=== PATIENT | female | born 1960 | race Caucasian/White ===

== ENCOUNTER 2016-12-13 15:03 | Emergency (ER) | payer OTHER ==
[2016-12-13 15:23] VITALS: TEMP 98.2; BMI 27.0
[2016-12-13] MEDS ORDERED: ASPIRIN 81 MG CHEWABLE TABLETS PO ONE (17:09)
[2016-12-13 19:01] LABS: BASOPHIL 1.4 % (0-2.0); EOSINOPHIL 1.8 % (0-4.5); MCH 32.3 pg (25.7-33.7); MCHC 33.8 g/dl (32.0-36.0); MEAN CELL VOLUME 95.6 fl (80-96); MEAN PLT VOLUME 9.3 fl (7.5-11.1); NEUTROPHILS 59.3 % (42.8-82.8); PLATELET COUNT 307 K/MM3 (134-434); RDW 13.1 % (11.6-15.6)
--- NOTE | 2016-12-13 19:12 | PDOC ---
History of Present Illness - General History Source: Patient Exam Limitations: Language Barrier (telugu speaking) <Hailey Sarmiento - Last Filed: 12/13/16 22:10> <Lola Dockery - Last Filed: 12/14/16 00:32> - General Chief Complaint: Chest Pain Stated Complaint: CHEST PAIN (PCP SENT) Time Seen by Provider: 12/13/16 16:25 - History of Present Illness Initial Comments: 12/13/16 19:13 The patient is a 56 year old, Honduran speaking female with past medical history of hypertension, and left ovarian cyst who presents to the ED with complaints of chest pain that began four days ago. She locates the pain to her mid sternum and describes it as burning with radiation to her left chest. It is associated with numbness and tingling down her left arm as well as mild shortness of breath , nausea, vomiting, and dizziness. She denies any recent illness, fever, chills , vomiting, diarrhea, or urinary symptoms. Translation was provided by the [employer] phone #[phone] Surgeries: Peptic ulcer surgery Allergies: N/A [facility] Past History <Hailey Sarmiento - Last Filed: 12/13/16 22:10> - Past Medical History Other medical history: ovarian cyst - Psycho/Social/Smoking Cessation Hx Suicidal Ideation: No Smoking History: Former smoker Have you smoked in the past 12 months: No If you are a former smoker, when did you quit?: 2-3 years ago Information on smoking cessation initiated: No <Lola Dockery - Last Filed: 12/14/16 00:32> - Past Medical History Allergies/Adverse Reactions: Allergies Allergy/AdvReac Type Severity Reaction Status Date / Time No Known Allergies Allergy Verified 12/13/16 15:12 Home Medications: Ambulatory Orders Unobtainable [Unobtainable] 12/13/16 Review of Systems - Review of Systems Able to Perform ROS?: Yes All Other Systems: Reviewed and Negative <lorenzoHailey dumas - Last Filed: 12/13/16 22:10> <Lola Dockery - Last Filed: 12/14/16 00:32> - Review of Systems Comments:: 12/13/16 19:14 CONSTITUTIONAL: Absent: fever, chills, diaphoresis, generalized weakness, malaise, loss of appetite HEENT: Absent: rhinorrhea, nasal congestion, throat pain, throat swelling, difficulty swallowing, mouth swelling, ear pain, eye pain, visual Changes CARDIOVASCULAR: Present: chest pain Absent: syncope, palpitations, irregular heart rate, lightheadedness, peripheral edema RESPIRATORY: Present: shortness of breath Absent: cough,dyspnea with exertion, orthopnea, wheezing, stridor, hemoptysis GASTROINTESTINAL: Present: nausea Absent: abdominal pain, abdominal distension,vomiting, diarrhea, constipation, melena, hematochezia GENITOURINARY: Absent: dysuria, frequency, urgency, hesitancy, hematuria, flank pain, genital pain MUSCULOSKELETAL: Absent: myalgia, arthralgia, joint swelling SKIN: Absent: rash, itching, pallor HEMATOLOGIC/IMMUNOLOGIC: Absent: easy bleeding, easy bruising, lymphadenopathy, frequent infections ENDOCRINE: Absent: unexplained weight gain, unexplained weight loss, heat intolerance, cold intolerance NEUROLOGIC: Present: dizziness, numbness/ tingling down left arm Absent: headache, focal weakness or paresthesias, unsteady gait, seizure, mental status changes, bladder or bowel incontinence PSYCHIATRIC: Absent: anxiety, depression, suicidal or homicidal ideation, hallucinations. (Hailey Sarmiento) *Physical Exam <TorstenHailey - Last Filed: 12/13/16 22:10> <Lola Dockery - Last Filed: 12/14/16 00:32> - Vital Signs Last Vital Signs Temp Pulse Resp BP Pulse Ox 98.2 F 91 H 18 129/84 91 L 12/13/16 15:12 12/13/16 21:08 12/13/16 21:08 12/13/16 21:08 12/13/16 21:08 - Physical Exam Comments: 12/13/16 19:16 GENERAL: Well developed, well nourished. Awake and alert. No acute distress. HEENT: Normocephalic, atraumatic. PERRLA, EOMI. No conjunctival pallor. Sclera are non- icteric. Moist mucous membranes. Oropharynx is clear. NECK: Supple. Full ROM. No JVD. Carotid pulses 2+ and symmetric, without bruits. No thyromegaly. No lymphadenopathy. CARDIOVASCULAR: Regular rate and rhythm. No murmurs, rubs, or gallops. Distal pulses are 2+ and symmetric. PULMONARY: No evidence of respiratory distress. Lungs clear to auscultation bilaterally. No wheezing, rales or rhonchi. ABDOMINAL: Soft. Non-tender. Non-distended. No rebound or guarding. No organomegaly. Normoactive bowel sounds. MUSCULOSKELETAL Normal range of motion at all joints. No bony deformities or tenderness. No CVA tenderness. EXTREMITIES: No cyanosis. No clubbing. No edema. No calf tenderness. SKIN: Warm and dry. Normal capillary refill. No rashes. No jaundice. NEUROLOGICAL: Alert, awake, appropriate. Cranial nerves 2-12 intact. No deficits to light touch and temperature in face, upper extremities and lower extremities. No motor deficits in the in face, upper extremities and lower extremities. Normoreflexic in the upper and lower extremities. Normal speech. Toes are down-going bilaterally. Gait is normal without ataxia. PSYCHIATRIC: Cooperative. Good eye contact. Appropriate mood and affect. (Hailey Sarmiento) Heart Score/ECG Review <Hailey Sarmiento - Last Filed: 12/13/16 22:10> <Lola Dockery - Last Filed: 12/14/16 00:32> - ECG Intrepretation Comment:: 12/13/16 19:42 ECG obtained at 15:12 Normal sinus at 66 b[facility] ED Treatment Course - LABORATORY CBC & Chemistry Diagram: 12/13/16 18:50 12/13/16 18:50 <Hailey Sarmiento - Last Filed: 12/13/16 22:10> - LABORATORY CBC & Chemistry Diagram: 12/13/16 18:50 12/13/16 18:50 <Lola Dockery - Last Filed: 12/14/16 00:32> - ADDITIONAL ORDERS Additional order review: Laboratory Results 12/13/16 12/13/16 12/13/16 23:34 18:50 18:50 INR 1.12 D-Dimer < 200 Sodium 138 Potassium 4.2 Chloride 102 Carbon Dioxide 30 Anion Gap 6 L BUN 17 Creatinine 0.7 Creat Clearance w eGFR > 60 Random Glucose 97 Calcium 10.0 Magnesium 2.2 Total Bilirubin 0.3 AST 13 L ALT 26 Alkaline Phosphatase 100 Creatine Kinase 85 62 Troponin I < 0.02 < 0.02 B-Natriuretic Peptide 239.41 H Total Protein 7.8 Albumin 4.3 12/13/16 18:50 RBC 4.27 MCV 95.6 MCHC 33.8 RDW 13.1 MPV 9.3 Neutrophils % 59.3 Lymphocytes % 30.1 Monocytes % 7.4 Eosinophils % 1.8 Basophils % 1.4 - RADIOLOGY Radiology Studies Ordered: Category Date Time Status CHEST X-RAY PORTABLE* [RAD] Stat Radiology 12/13/16 17:09 Completed - Medications Given in the ED: ED Medications Discontinued Medications Generic Name Dose Route Start Last Admin Trade Name Nurys PRN Reason Stop Dose Admin Al Hydroxide/Mg Hydroxide 30 ml 12/13/16 20:34 12/13/16 21:05 Mylanta Oral Suspension - PO 12/13/16 20:35 30 ml ONCE ONE Administration Aspirin 162 mg 12/13/16 17:09 12/13/16 17:13 Asa - PO 12/13/16 17:10 Not Given ONCE ONE Famotidine/Sodium Chloride 50 mls @ 100 mls/hr 12/13/16 20:34 12/13/16 21:06 Pepcid 20 Mg Premixed Ivpb - IVPB 12/13/16 21:03 100 mls/hr ONCE ONE Administration Medical Decision Making <Hailey Sarmiento - Last Filed: 12/13/16 22:10> <Lola Dockery - Last Filed: 12/14/16 00:32> - Medical Decision Making 12/13/16 21:42 Phone call placed to patient's PCP, Dr. Oconnor. Awaiting call back. 12/13/16 22:10 Call returned and case discussed [facility] 12/13/16 22:13 Dr. Oconnor will arrange for an echo as an outpatient. The plan is for her to have a second cardiac enzyme at 11 PM. If it is negative, she'll be discharged home to follow up with Dr. oconnor for further outpatient management 12/13/16 22:14 12/14/16 00:21 (Lola Dockery) *DC/Admit/Observation/Transfer <Hailey Sarmiento - Last Filed: 12/13/16 22:10> <Lola Dockery - Last Filed: 12/14/16 00:32> Diagnosis at time of Disposition: Chest pain Qualifiers: Chest pain type: precordial pain Qualified Code(s): R07.2 - Precordial pain - Discharge Dispostion Disposition: HOME Condition at time of disposition: Stable - Referrals Referrals: Elidia Oconnor MD [Primary Care Provider] - - Patient Instructions Printed Discharge Instructions: DI for Chest Pain Additional Instructions: Please call Dr Oconnor and who will arrange for an ECHO and stress test Return for any worsening symptoms - Attestations Scribe Attestion: 12/13/16 19:17 Documentation prepared by Hailey Sarmiento, acting as medical appointment scheduler for Lola Dockery MD. (Hailey Sarmiento)
[2016-12-13 19:37] LABS: ALBUMIN 4.3 g/dl (3.4-5.0); ANION GAP 6 (8-16); CO2 30 mmol/L (21-32); GLUCOSE,RANDOM 97 mg/dL (74-106); MAGNESIUM 2.2 mg/dL (1.8-2.4)
[2016-12-13 19:43] LABS: ALK PHOS 100 U/L (45-117); BILIRUBIN,TOTAL 0.3 mg/dL (0.2-1.0); CPK 62 IU/L (26-192); CREATININE 0.7 mg/dL (0.55-1.02); SGOT/AST 13 U/L (15-37); SGPT/ALT 26 U/L (12-78); TOT PROT 7.8 g/dl (6.4-8.2); TROPONIN I < 0.02 ng/ml (0.00-0.05)
[2016-12-13 19:46] LABS: INR 1.12 (0.82-1.09)
[2016-12-13 19:49] LABS: D-DIMER < 200 ng/ml (<200-235)
[2016-12-13] MEDS ORDERED: FAMOTIDINE 20 MG/50 ML IVPB 50 ML IVPB ONE ×2 (20:34→20:56)
[2016-12-13] MEDS ORDERED: MAG HYDROX/AL HYDROX/SIMETH 30 ML UNIT-DOSE CUP PO ONE (20:34)
[2016-12-13] MEDS ORDERED: MAG HYDROX/AL HYDROX/SIMETH 30 ML UNIT-DOSE CUP ONE (20:56)
[2016-12-14 00:30] LABS: TROPONIN I < 0.02 ng/ml (0.00-0.05)
[2016-12-14 00:31] LABS: CPK 85 IU/L (26-192)
[2016-12-14 00:33] VITALS: BP 135/76; PULSE 66
--- NOTE | 2016-12-14 14:46 | EKG ---
Test Reason : Blood Pressure : / mmHG Vent. Rate : 065 BPM Atrial Rate : 065 BPM P-R Int : 126 ms QRS Dur : 082 ms QT Int : 400 ms P-R-T Axes : -31 018 034 degrees QTc Int : 416 ms UNUSUAL P AXIS, POSSIBLE ECTOPIC ATRIAL RHYTHM ABNORMAL ECG WHEN COMPARED WITH ECG OF 10-MAY-2008 03:06, ECTOPIC ATRIAL RHYTHM HAS REPLACED SINUS RHYTHM Confirmed by RICKEY CASTRO MD ([id number]) on 12/14/2016 2:45:41 PM Referred By: SALIMA Confirmed By:RICKEY CASTRO MD
== END 2016-12-14 00:46 | disposition home or self-care (01) ==
LOC: JER 15:03
PROC: 3E033GC Introduction of Other Therapeutic Substance into Peripheral Vein, Percutaneous Approach (ICD-10-PCS; principal; 2016-12-13)
DX: R07.2 Precordial pain (principal); I10 Essential (primary) hypertension; Z87.891 Personal history of nicotine dependence
CPT/HCPCS: 36415; 71010-TC; 80053; 83735; 83880; 84484; 85025; 85379; 85610; 93005; 93010; 99283-25

== ENCOUNTER 2017-08-16 13:41 | Emergency (ER) | payer OTHER ==
[2017-08-16 14:02] VITALS: BP 158/92; PULSE 84; TEMP 98.1; BMI 26.4
--- NOTE | 2017-08-16 16:18 | PDOC ---
Attending Attestation - [facility] HPI: 08/16/17 16:22 Pt is a 57 year old female, Telugu speaking, with a significant past medical history of hypertension, gastric ulcers, and left ovarian cyst, who presents to the emergency department sent by her manager career for further evaluation of abdominal pain and abnormal blood cell counts. The patient reports her pain is diffuse in nature. She denies any associated nausea, vomiting, diarrhea, or constipation. She reports associated dizziness and lightheadedness, but denies any fever, chills, headache, or dizziness. Patient reports she was prescribed something for her pain which she does not remember the name of, with mild relief of symptoms. Patient states she has lost 5 kg over the past month, but denies any changes in appetite. She denies any chest pain, shortness of breath, diaphoresis, or palpitations. She denies any dysuria, hematuria, frequency, or urgency. Per records, patient had an outpatient CT Abdomen and pelvis, which was notabe for "Bilateral complex adnexal region masses the right measuring 4.9x5.2cm, the left 3.6x2.8cm, seen in association with moderate abdominal and pelvic ascites and findings suspicious for peritoneal carcinomatosis. While not conclusive, primary ovarian malignancy is suspected. Further evaluation of the gynecological pelvis with pre and post contrast MRI is recommended. There is retroperitoneal adenopathy. There is moderate bilateral hydronephrosis. This is likely due to the pelvic mass process. There is anonobstructing left mid to lower pole renal stone." PCP Dr. Galloway - Physicial Exam PE: 08/16/17 16:31 Constitutional: Awake, alert, oriented. No acute distress. Head: Normocephalic. Atraumatic Eyes: PERRL. EOMI. Conjunctivae are not pale. ENT: Mucous membranes are moist and intact. Posterior pharynx without exudates or erythema. Uvula midline. Neck: Supple. Full ROM. No lymphadenopathy. Cardiovascular: Regular rate. Regular rhythm. S1, S2 regular. Distal pulses are 2+ and symmetric. Pulmonary/Chest: No evidence of respiratory distress. Clear to auscultation bilaterally No wheezing, rales or rhonchi. Abdominal: Mild Epigastric/LLQ/RLQ tenderness. Soft and non-distended. No rebound, guarding or rigidity. No organomegaly. No palpable masses. Good bowel sounds. Back: No CVA tenderness. Musculoskeletal: No edema. No cyanosis. No clubbing. Full range of motion in all extremities. No calf tenderness. Radial/pedal pulses are intact and 2+ bilaterally Skin: Skin is warm and dry. No petechiae. No purpura. Neurological: Alert and oriented to person, place, and time. Cranial nerves II -XII are grossly intact. Normal speech. Strength is grossly symmetric. No sensory deficits. Psychiatric: Good eye contact. Normal interaction, affect and behavior. - Medical Decision Making 08/16/17 16:22 Documentation prepared by Annette Bell, acting as medical scientific officer for Armida Stephen DO. <Annette Bell - Last Filed: 08/16/17 21:51> - Resident Resident Name: Salbador Victoria - ED Attending Attestation I have performed the following: I have examined & evaluated the patient, The case was reviewed & discussed with the resident, I agree w/resident's findings & plan, Exceptions are as noted - Medical Decision Making 08/16/17 16:18 I, Dr. Armida Stephen DO, attest that this document has been prepared under my direction and personally reviewed by me in its entirety. I further attest, that it accurately reflects all work, treatment, procedures and medical decision -making performed by me. 08/16/17 17:34 a/p: 57yo female with outpt labs and ct that shows a ovarian cyst -hgb 11 on outpt labs -c/o epigastric and lower pelvic pain -no vaginal bleeding, no hematuria -c/o dysuria -no UTI on outpt labs -will repeat labs for abd pain -pelvic u/s for further eval of cysts -has referral for GI and GOVERNMENT OPERATIONS CONSULTANT follow up -does have hx of precancerous cells on her cervix 3 years ago -will need GOVERNMENT OPERATIONS CONSULTANT outpt followup -will give meds for GI epigastric pain - hx of gastric ulcers with epigastric pain - suspect gastritis vs PUD 08/16/17 21:49 complex ovarian cysts seen on ultrasound no torsion pt updated on results will need DATA CENTER ENGINEER - follow up <Armida Stephen - Last Filed: 08/16/17 22:02> ED Treatment Course - LABORATORY CBC & Chemistry Diagram: 08/16/17 19:00 08/16/17 19:00 - ADDITIONAL ORDERS Additional order review: Laboratory Results 08/16/17 08/16/17 08/16/17 19:00 19:00 19:00 Sodium 144 Potassium 4.6 Chloride 112 H Carbon Dioxide 28 Anion Gap 4 L BUN 20 H Creatinine 1.2 H Creat Clearance w eGFR 46.14 Random Glucose 92 Calcium 8.9 Total Bilirubin 0.3 AST 21 ALT 38 Alkaline Phosphatase 88 Total Protein 7.0 Albumin 4.0 Lipase 155 Urine Color Straw Urine Appearance Clear Urine pH 5.0 Ur Specific [place] 1.011 Urine Protein Negative Urine Glucose (UA) Negative Urine Ketones Negative Urine Blood Negative Urine Nitrite Negative Urine Bilirubin Negative Urine Urobilinogen Negative Ur Leukocyte Esterase Negative Urine HCG, Qual Negative 08/16/17 19:00 RBC 3.35 L D MCV 95.5 MCHC 34.1 RDW 12.6 MPV 9.3 Neutrophils % 62.7 Lymphocytes % 24.1 Monocytes % 8.9 Eosinophils % 3.7 D Basophils % 0.6 - RADIOLOGY Radiograph Interpretation: 08/16/17 21:51 EXAM: Transvaginal US INTERPRETED BY: Dr. Moseley REVIEWED BY: Dr. Stephen IMPRESSION: In comparison to previous ultrasound studies apparent interval development of mild nonspecific endometrial thickening is noted. Correlate with endometrial biopsy. Interval development of a moderate amount of complex nonspecific free fluid is seen within the right adnexa. Development of a nonspecific 3.4 cm right ovarian cyst is noted containing several slightly thickened internal septations. A 3.3 cm left ovarian cyst is seen containing slightly thickened internal septations. On the previous studies a 1.5 cm left ovarian cyst was described. - Medications Given in the ED: ED Medications Discontinued Medications Generic Name Dose Route Start Last Admin Trade Name Freq PRN Reason Stop Dose Admin Al Hydroxide/Mg Hydroxide 30 ml 08/16/17 17:37 08/16/17 19:16 Mylanta Oral Suspension - PO 08/16/17 17:38 30 ml ONCE ONE Administration Famotidine/Sodium Chloride 20 mg in 50 mls @ 100 mls/hr 08/16/17 17:45 19:17 Pepcid 20 Mg Premixed Ivpb - IVPB 08/16/17 18:14 100 mls/hr ONCE ONE Administration Lidocaine HCl 20 ml 08/16/17 17:37 08/16/17 19:17 Xylocaine 2% Viscous Oral - MM 08/16/17 17:38 20 ml ONCE ONE Administration Sodium Chloride 1,000 ml 08/16/17 17:37 08/16/17 19:16 Normal Saline - IV 08/16/17 17:38 1,000 ml ONCE ONE Administration <Annette Bell - Last Filed: 08/16/17 21:51> - LABORATORY CBC & Chemistry Diagram: 08/16/17 19:00 08/16/17 19:00 <Armida Stephen - Last Filed: 08/16/17 22:02>
[2017-08-16] MEDS ORDERED: MAG HYDROX/AL HYDROX/SIMETH 30 ML UNIT-DOSE CUP PO ONE (17:37)
[2017-08-16] MEDS ORDERED: LIDOCAINE VISCOUS 2% ORAL/TOP 20 ML UNIT-DOSE CUP MM ONE (17:37)
[2017-08-16] MEDS ORDERED: SODIUM CHLORIDE 0.9% 1000 ML INFUS.BAG IV ONE (17:37)
--- NOTE | 2017-08-16 17:42 | PDOC ---
History of Present Illness - General Chief Complaint: Pain Stated Complaint: PAIN/ ABD, PELVIC Time Seen by Provider: 08/16/17 16:17 History Source: Patient Exam Limitations: No Limitations - History of Present Illness Initial Comments: 08/16/17 17:19 The patient is a 57F with a PMH of ovarian cysts and HTN who presents to the ER for abdominal pain. The patient is Indonesian speaking and scrum project manager [employer] was used. The patient states that she was told to come to an ER for sonographic evaluation by her PCP. She denies any acute pain or changes in her abdominal pain. The patient states that she has chronic abdominal pain but denies fever, chills, nausea, vomiting, vaginal bleeding, hematochezia, black/tarry stools, and hematuria. Past History - Past Medical History Allergies/Adverse Reactions: Allergies Allergy/AdvReac Type Severity Reaction Status Date / Time No Known Allergies Allergy Verified 08/16/17 13:50 Home Medications: Ambulatory Orders Losartan Potassium [Cozaar] 100 mg PO DAILY 08/16/17 Omeprazole 20 mg PO DAILY 08/16/17 COPD: No - Suicide/Smoking/Psychosocial Hx Smoking History: Former smoker Have you smoked in the past 12 months: No If you are a former smoker, when did you quit?: 2014 Information on smoking cessation initiated: No Hx Alcohol Use: No Drug/Substance Use Hx: No Substance Use Type: None Review of Systems - Review of Systems Able to Perform ROS?: Yes Comments:: 08/16/17 17:42 GENERAL/CONSTITUTIONAL: No fever or chills. No weakness. HEAD, EYES, EARS, NOSE AND THROAT: No change in vision. No ear pain or discharge. No sore throat. CARDIOVASCULAR: No chest pain, palpitations, or lightheadedness. RESPIRATORY: No cough, wheezing, shortness of breath, or hemoptysis. GASTROINTESTINAL: Positive for abdominal pain (chronic). No nausea, vomiting, diarrhea, or constipation. GENITOURINARY: No dysuria, frequency, hematuria, or change in urination. MUSCULOSKELETAL: No joint or muscle swelling or pain. No neck or back pain. SKIN: No rash or lesions. NEUROLOGIC: No headache, numbness, tingling, weakness, loss of consciousness, or change in strength/sensation. ENDOCRINE: No increased thirst. No abnormal weight change. HEMATOLOGIC/LYMPHATIC: No anemia, easy bleeding, or history of blood clots. ALLERGIC/IMMUNOLOGIC: No hives or skin allergy. Is the patient limited Gibraltarian proficient: Yes *Physical Exam - Vital Signs Last Vital Signs Temp Pulse Resp BP Pulse Ox 98.1 F 84 16 158/92 100 08/16/17 13:51 08/16/17 13:51 08/16/17 13:51 08/16/17 13:51 08/16/17 13:51 - Physical Exam Comments: 08/16/17 17:45 GENERAL: Well developed, well nourished. Awake and alert. No acute distress. HEENT: Normocephalic, atraumatic. Hearing grossly normal. Moist mucous membranes. PERRLA, EOMI. No conjunctival pallor. Sclera are non-icteric. NECK: Supple. Full ROM. No JVD. CARDIOVASCULAR: Regular rate and rhythm. No murmurs, rubs, or gallops. PULMONARY: No evidence of respiratory distress. Lungs clear to auscultation bilaterally. No wheezing, rales or rhonchi. ABDOMINAL: Soft. Tender to deep palpation in the epigastrium. Non-distended. No rebound or guarding. GENITOURINARY: No CVA tenderness bilaterally. MUSCULOSKELETAL: Normal range of motion at all joints. No bony deformities or tenderness. EXTREMITIES: No cyanosis. No clubbing. No edema. No calf tenderness. SKIN: Warm and dry. Normal capillary refill. No rashes. No jaundice. NEUROLOGICAL: Alert, awake, appropriate. Cranial nerves 2-12 intact. Normal speech. Gait is normal without ataxia. PSYCHIATRIC: Cooperative. Good eye contact. Appropriate mood and affect. ED Treatment Course - LABORATORY CBC & Chemistry Diagram: 08/16/17 19:00 08/16/17 19:00 - RADIOLOGY Radiology Studies Ordered: Category Date Time Status TRANSVAGINAL ULTRASOUND US [US] Stat Ultrasound 08/16/17 16:26 Ordered Medical Decision Making - Medical Decision Making 08/16/17 17:46 The patient is a 57F with a PMH of HTN and ovarian cysts who presents to the ER under direction of her PCP for abdominal pain. The patient presents with chronic abdominal pain and results from her PCP's office with a CT scan indicating ovarian cysts. Will recheck CBC and CMP with TV U/S to evaluate ovaries. Pending labs/imaging. 08/16/17 21:49 Labs WNL. US: IMPRESSION: In comparison to previous ultrasound studies apparent interval development of mild nonspecific endometrial thickening is noted. Correlate with endometrial biopsy. Interval development of a moderate amount of complex nonspecific free fluid is seen within the right adnexa. Development of a nonspecific 3.4 cm right ovarian cyst is noted containing several slightly thickened internal septations. A 3.3 cm left ovarian cyst is seen containing slightly thickened internal septations. On the previous studies a 1.5 cm left ovarian cyst was described. Will d/c home with OB f/u and print out of US today. Pt agrees and is ready for d/c. *DC/Admit/Observation/Transfer Diagnosis at time of Disposition: Abdominal pain Qualifiers: Abdominal location: lower abdomen, unspecified Qualified Code(s): R10.30 - Lower abdominal pain, unspecified - Discharge Dispostion Disposition: HOME Condition at time of disposition: Stable Admit: No - Referrals Referrals: Cheyenne Galloway MD [Primary Care Provider] - - Patient Instructions Printed Discharge Instructions: Ovarian Cyst Additional Instructions: Please return to the ER if you have any signs or symptoms of chest pain, shortness of breath, uncontrollable fever, chills, nausea, vomiting, numbness, tingling, or weakness in any part of your body, changes in vision, or slurred speech. Please follow up with your pickle maker in 1-3 days. Give your pickle maker your print out of your ultrasound results. Please return to the ER if symptoms persist, worsen, or new symptoms arise. Prosz wrci do sali operacyjjose rafael, natalie jonas lub objawy briseyda w klatce piersiowej, duszno, niekontrolowan gorczk, dreszcze, nudnoci, wymioty, drtwienie, mrowienie lub osabienie w dowolnecampos curiel lub trya mow. Prosz missael si z OB / Fellmongery Worker w cigu 1-3 dni. Williams potter OB / Fellmongery Worker lamar mon USG. Prosz wrci do ER, natalie objdouglas utrzymuj si, pogarszanila tere conklin. Print Language: SYRIAC - Post Discharge Activity
[2017-08-16] MEDS ORDERED: FAMOTIDINE 20 MG/50 ML IVPB 20 MG/50 ML MG IVPB ONE ×2 (17:45→18:59)
[2017-08-16] MEDS ORDERED: LIDOCAINE VISCOUS 2% ORAL/TOP 20 ML UNIT-DOSE CUP ONE (18:59)
[2017-08-16] MEDS ORDERED: MAG HYDROX/AL HYDROX/SIMETH 30 ML UNIT-DOSE CUP ONE (18:59)
[2017-08-16 19:21] LABS: BASO % 0.6 % (0-2.0); EOS % 3.7 % (0-4.5); HEMOGLOBIN 10.9 GM/dL (10.7-15.3); LYMPH % 24.1 % (8-40); MCH 32.6 pg (25.7-33.7); MCHC 34.1 g/dl (32.0-36.0); MEAN CELL VOLUME 95.5 fl (80-96); MEAN PLT VOLUME 9.3 fl (7.5-11.1); MONO % 8.9 % (3.8-10.2); NEUT % 62.7 % (42.8-82.8); PLATELET COUNT 273 K/MM3 (134-434); RBC 3.35 M/mm3 (3.60-5.2); RDW 12.6 % (11.6-15.6); WHITE BLOOD COUNT 7.1 K/mm3 (4.0-10.0)
[2017-08-16 19:22] LABS: URINE APPEARANCE CLEAR; URINE BILIRUBIN NEGATIVE (<2.0 mg/dL); URINE BLOOD NEGATIVE (NEGATIVE); URINE COLOR STRAW; URINE GLUCOSE (UA) NEGATIVE (NEGATIVE); URINE KETONE NEGATIVE (NEGATIVE); URINE LEUK ESTERASE NEGATIVE (NEGATIVE); URINE NITRITE NEGATIVE (NEGATIVE); URINE PROTEIN NEGATIVE (NEGATIVE); URINE UROBILINOGEN NEGATIVE mg/dL (0.2-1.0)
[2017-08-16 19:50] LABS: ANION GAP 4 (8-16); BLOOD UREA NITROGEN 20 mg/dL (7-18); CALCIUM 8.9 mg/dL (8.5-10.1); CHLORIDE 112 mmol/L (98-107); CO2 28 mmol/L (21-32); CREATININE 1.2 mg/dL (0.55-1.02); GLUCOSE,RANDOM 92 mg/dL (74-106); LIPASE 155 U/L (73-393); POTASSIUM 4.6 mmol/L (3.5-5.1); SGOT/AST 21 U/L (15-37); SGPT/ALT 38 U/L (12-78); SODIUM 144 mmol/L (136-145)
[2017-08-16 19:52] LABS: ALK PHOS 88 U/L (45-117); BILIRUBIN,TOTAL 0.3 mg/dL (0.2-1.0)
== END 2017-08-16 22:21 | disposition home or self-care (01) ==
LOC: JER 13:41
PROC: 3E0337Z Introduction of Electrolytic and Water Balance Substance into Peripheral Vein, Percutaneous Approach (ICD-10-PCS; principal; 2017-08-16)
PROC: 3E033GC Introduction of Other Therapeutic Substance into Peripheral Vein, Percutaneous Approach (ICD-10-PCS; 2017-08-16)
DX: R10.30 Lower abdominal pain, unspecified (principal); I10 Essential (primary) hypertension
CPT/HCPCS: 36415; 76830-TC; 80053; 81003; 83690; 84703; 85025; 87086; 99284-25; J7030